=== PATIENT | female | born 1965 | race Caucasian/White ===

== ENCOUNTER 2020-11-07 12:12 | Emergency (ER) | payer OTHER ==
[~2020-11-07] VITALS: Ht 170.2 cm; Wt 122.7 kg
[~2020-11-07 12:12] MED LIST: ALBU8.5H8 IH; BISA10SU11 PR; CEFTR1IV IV; DULO30CA96 PO; FLUO120C4 TP; FLUT1AER IH; FURO40 PO; HYD25 PO; HYD50 PO; HYDR-3831 PO; HYDR-4723 PO; INSLAN SQ; LISI-892 PO; MELA3TAB89 PO; MOM30 PO; MULT-248 PO; OXYC10TA92 PO; TIZA4CAP PO; VANC250C13 PO
[2020-11-07] MEDS ORDERED: OxyCODONE HCL/ACETAMINOPHEN 10-325 MG TABLET PO ONE (14:15)
[2020-11-07 16:00] VITALS: BP 103/65
== END 2020-11-07 18:00 ==
LOC: EMS 12:12
DX: M25.572 Pain in left ankle and joints of left foot (principal); M25.571 Pain in right ankle and joints of right foot; E78.00 Pure hypercholesterolemia, unspecified; F41.9 Anxiety disorder, unspecified; G89.29 Other chronic pain; Z91.013 Allergy to seafood; Z79.4 Long term (current) use of insulin; Z79.899 Other long term (current) drug therapy
CPT/HCPCS: 99283